=== PATIENT | female | born 1945 | race Caucasian/White ===

== ENCOUNTER 2018-07-26 05:37 | Day surgery (SDC) | payer MEDICARE, OTHER ==
[2018-07-26] MEDS ORDERED: PROPOFOL 20 ML (06:17)
[2018-07-26] MEDS ORDERED: NEOSTIGMINE 3 MG/3 ML SYRINGE (06:17)
[2018-07-26] MEDS ORDERED: ROCURONIUM 50 MG INJ (06:17)
[2018-07-26] MEDS ORDERED: LIDOCAINE 2% (SDV) 5 ML INJ (06:17)
[2018-07-26] MEDS ORDERED: GLYCOPYRROLATE 0.4 MG INJ (06:17)
[2018-07-26] MEDS ORDERED: FENTAnyl 50 MCG/ML VIAL (06:18)
[2018-07-26] MEDS ORDERED: ONDANSETRON 4 MG INJ (06:18)
[2018-07-26] MEDS ORDERED: MIDAZOLAM 1 MG/ML 2 ML INJ (06:18)
[2018-07-26] MEDS ORDERED: DEXAMETHASONE 4 MG/ML 5 ML INJ (06:18)
[2018-07-26] MEDS ORDERED: ROPIVACAINE 0.5 % 30 ML VIAL (06:25)
[2018-07-26] MEDS: VANCOMYCIN 1 GM (PMX) 250 ML IVPB (06:50)
[2018-07-26] MEDS ORDERED: METHYLENE BLUE 1% 10 ML INJ (06:58)
[2018-07-26] MEDS ORDERED: SEVOFLURANE 15 MIN (07:00)
[2018-07-26] MEDS: ROPIVACAINE 0.5 % 30 ML VIAL (08:23)
[2018-07-26] MEDS: POLYMYXIN/BACITRACIN 1L IRRIG (08:23)
[2018-07-26] MEDS: POVIDONE IODINE 10% 28.4 GM OINT (08:24)
[2018-07-26] MEDS ORDERED: POLYMYXIN/BACITRACIN 1L IRRIG (10:33)
[2018-07-26] MEDS ORDERED: LABETALOL HCL 20MG INJ (10:54)
[2018-07-26] MEDS: HYDROmorphONE 1 MG/5 ML IV SYRINGE IV ×2 (11:26→11:31)
[2018-07-26] MEDS: ONDANSETRON 4 MG INJ IV (11:27)
[2018-07-26] MEDS ORDERED: FENTAnyl 50 MCG/ML VIAL IV ×2 (11:30)
[2018-07-26] MEDS ORDERED: LABETALOL HCL 20MG INJ IV (11:30)
[2018-07-26] MEDS ORDERED: MIDAZOLAM 1 MG/ML 2 ML INJ IV (11:30)
[2018-07-26] MEDS ORDERED: hydrALAzine 20 MG INJ IV (11:30)
[2018-07-26] MEDS ORDERED: EPHEDrine SULFATE 50 MG/5 ML SYG IV (11:30)
[2018-07-26] MEDS ORDERED: HYDROmorphONE 1 MG/5 ML IV SYRINGE IV (11:30)
[2018-07-26] MEDS ORDERED: DIPHENHYDRAMINE 50 MG INJ IV (11:30)
[2018-07-26] MEDS: MEPERIDINE 25 MG INJ IV (11:35)
[2018-07-26] MEDS: FENTAnyl 50 MCG/ML VIAL IV ×2 (11:41→11:50)
[2018-07-26] MEDS ORDERED: SOD CHLORIDE 0.9% 1,000 ML IV (11:53)
[2018-07-26] MEDS ORDERED: morphine 2 MG INJ IV (12:00)
[2018-07-26] MEDS ORDERED: ONDANSETRON 4 MG INJ IV (12:00)
[2018-07-26] MEDS: OXYCODONE/ACETAMINOPHEN (5/325) TAB PO ×2 (13:49→14:26)
== END 2018-07-26 15:14 | disposition home or self-care (01) ==
LOC: SDS 05:37
DX: M20.11 Hallux valgus (acquired), right foot (principal); M21.611 Bunion of right foot
CPT/HCPCS: 28295; 73630; 87070; 87075